=== PATIENT | female | born 1970 | race African-American/Black ===

== ENCOUNTER 2017-11-09 17:30 | Emergency (ER) | payer OTHER ==
[~2017-11-09] VITALS: Ht 157.5 cm; Wt 144.7 kg
[2017-11-09] MEDS ORDERED: LISINOPRIL10 MG ORAL (17:50)
[2017-11-09] MEDS ORDERED: METFORMIN HCL1000 M1 ORAL (17:50)
[2017-11-09] MEDS ORDERED: HYDROCHLOROTH12.5 M2 ORAL (17:50)
[2017-11-09 18:00] VITALS: BP 134/87
--- NOTE | 2017-11-09 18:14 | Emergency Room Report ---
History of Present Illness General Chief Complaint: General Complaint Source: Patient Present Illness HPI 47-year-old female patient presents ER complaining of bilateral leg swelling for the past 3 days. Reports that she has a history of leg swelling. Denies recent travel or immobilization. Reports that she takes HCTZ normally, did not take today because "doesn't treat the symptoms enough". Denies chest pain, shortness breath, other acute symptoms. reports history of hypertension. Denies history of heart attack, stroke, CHF. Denies hx of PE. Reports hx of diabetes. Also complaining of small possible bug bites on feet. Reports they' re pruritic. Denies drainage or open lesions, denies tenderness to palpation. Reports she has use topical Benadryl medications with mild relief of symptoms. Denies other acute symptoms. Denies fever,vomiting, abdominal pain. Allergies: Coded Allergies: No Known Allergies (Unverified , 11/09/17) Patient History Past Medical History: see triage record Reviewed Nursing Documentation: PMH: Agreed; PSxH: Agreed Nursing Documentation-PMH Past Medical History: No History, Except For Hx Cardiac Problems: No - Arthritis Hx Hypertension: Yes Hx Pacemaker: No Hx Asthma: No - Bronchitis Hx COPD: No Hx Diabetes: Yes Hx Cancer: No Hx Gastrointestinal Problems: No Hx Dialysis: No History Of Psychiatric Problem: Yes - Depression Hx Neurological Problems: No Hx Cerebrovascular Accident: No Hx Seizures: No Review of Systems All Other Systems: negative except mentioned in HPI Physical Exam Vital Signs Date Time Temp Pulse Resp B/P (MAP) Pulse Ox O2 Delivery O2 Flow Rate FiO2 11/09/17 17:38 98.1 87 15 134/87 97 Room Air 98.1 Sp02 EP Interpretation: reviewed, normal General Appearance: well appearing, no apparent distress, alert, GCS 15, non- toxic, obese Head: normocephalic, atraumatic Eyes: bilateral eye normal inspection, bilateral eye PERRL ENT: hearing grossly normal, normal pharynx, no angioedema, normal voice, TMs + canals normal, uvula midline, moist mucus membranes Neck: full range of motion Respiratory: lungs clear, normal breath sounds, no rhonchi, no respiratory distress, no accessory muscle use, no wheezing, speaking full sentences Cardiovascular #1: regular rate, rhythm, edema - Bilateral Lower leg edema, no pitting Gastrointestinal: non tender, soft, no mass, non-distended, no guarding, no rebound Musculoskeletal: back normal, digits/nails normal, gait/station normal, normal range of motion, non-tender, no calf tenderness, Aiarm's Sign negative Neurologic: alert, oriented x3, responsive, motor strength/tone normal, sensory intact Skin: no rash Medical Decision Making PA Attestation Dr. Orona is my supervising Physician whom patient management has been discussed with. Diagnostic Impression: Primary Impression: Peripheral edema Additional Impressions: Microscopic hematuria Bug bite ER Course Pt. presents to the ED c/o bilateral leg edema and bug bites. Ddx considered but are not limited to fracture peripheral edema, CHF, [place], DVT. low suspicion for DVT due to Wells criteria. Will order labs to rule out CHF. Vital signs: are WNL, pt. is afebrile, blood pressure mildly elevated. Blood pressure mildly elevated at this time, will continue to monitor. Denies chest pain, shortness of breath, vision changes, does not require acute intervention at ER at this time. Follow with primary care provider discuss further treatment and referral. Advised on low-sodium diet, advised on diet and exercise. ER COURSE: provided patient with Lasix in the ER. Accu-Chek shows blood sugar 189, does not require acute intervention at this time. instructed patient to take diabetes medications as instructed. Follow up with PCP. CBC and CMP unremarkable UA elevated RBCs and blood, patient denies hematuria or abdominal pain. No protein in urine, unlikely due to kidney damage. Patient states that she is beginning her menstrual period soon, may be related to onset of menstrual period. F/u with PCP and deaf/hard of hearing specialist. No abdominal TTP, does not require imaging at this time. CXR negative for acute disease. EKG no ST elevation, no fracture arrhythmia, normal sinus rhythm. Low suspicion for acute CHF exacerbation, no chest pain or SOB noted by patient , lungs clear to auscultation. Mildly erythematous urticaria noted on bilateral dorsum of feet, no active draining, no induration or edema, likely localized reaction due to bug bites. Use hydrocortisone cream for itching and swelling symptoms. Do not apply to face or skin creases. OTC Benadryl for pruritis symptoms, SE drowsiness, do not take prior to drinking, driving, operating heavy machinery. advised patient to to elevate legs and wear compression stockings. Take blood pressure medication as instructed. Do not skip dosages of medications. patient reports symptoms have improved while in the ER. States pain and swelling of legs decreased. Patient able to ambulate independently. Nontoxic appearing, in no acute distress , OK for discharge to home. DISCHARGE: At this time pt is stable for d/c to home. Patient is resting comfortably, in no acute distress, nontoxic appearing, talking without difficulty. Patient to take medications as instructed Will provide with patient care instructions and any necessary prescriptions. Care plan and follow-up instructions provided. Patient instructed to follow-up with primary care provider in 3 - 5 days. Patient questions asked and answered. Patient reports understanding and agreement to treatment plan. ER precautions given. Patient instructed to return to ER immediately for any new or worsening of symptoms including but not limited to increasing SOB, persistent fever, chest pain, intractable vomiting. - Please note that this Emergency Department Report was dictated using [employer] core tester technology software, occasionally this can lead to erroneous entry secondary to interpretation by the dictation equipment. Labs Test 11/09/17 18:40 White Blood Count 6.8 K/UL (4.8-10.8) Red Blood Count 4.26 M/UL (4.20-5.40) Hemoglobin 12.2 G/DL (12.0-16.0) Hematocrit 35.3 % (37.0-47.0) Mean Corpuscular Volume 83 FL (80-99) Mean Corpuscular Hemoglobin 28.8 PG (27.0-31.0) Mean Corpuscular Hemoglobin Concent 34.7 G/DL (32.0-36.0) Red Cell Distribution Width 12.4 % (11.6-14.8) Platelet Count 318 K/UL (150-450) Mean Platelet Volume 7.0 FL (6.5-10.1) Neutrophils (%) (Auto) 52.3 % (45.0-75.0) Lymphocytes (%) (Auto) 37.7 % (20.0-45.0) Monocytes (%) (Auto) 5.3 % (1.0-10.0) Eosinophils (%) (Auto) 3.1 % (0.0-3.0) Basophils (%) (Auto) 1.7 % (0.0-2.0) Urine Color Pale yellow Urine Appearance Clear Urine pH 5 (4.5-8.0) Urine Specific [place] 1.015 (1.005-1.035) Urine Protein Negative (NEGATIVE) Urine Glucose (UA) Negative (NEGATIVE) Urine Ketones Negative (NEGATIVE) Urine Occult Blood 5+ (NEGATIVE) Urine Nitrite Negative (NEGATIVE) Urine Bilirubin Negative (NEGATIVE) Urine Urobilinogen Normal MG/DL (0.0-1.0) Urine Leukocyte Esterase 1+ (NEGATIVE) Urine RBC 20-30 /HPF (0 - 2) Urine WBC 0-2 /HPF (0 - 2) Urine Squamous Epithelial Cells Few /LPF (NONE/OCC) Urine Bacteria Occasional /HPF (NONE) Urine HCG, Qualitative Negative (NEGATIVE) Sodium Level 137 MMOL/L (136-145) Potassium Level 3.8 MMOL/L (3.5-5.1) Chloride Level 101 MMOL/L (98-107) Carbon Dioxide Level 28 MMOL/L (21-32) Anion Gap 8 mmol/L (5-15) Blood Urea Nitrogen 16 mg/dL (7-18) Creatinine 1.0 MG/DL (0.55-1.30) Estimat Glomerular Filtration Rate > 60 mL/min (>60) Glucose Level 192 MG/DL (74-106) Calcium Level 9.2 MG/DL (8.5-10.1) Total Bilirubin 0.4 MG/DL (0.2-1.0) Aspartate Amino Transf (AST/SGOT) 11 U/L (15-37) Alanine Aminotransferase (ALT/SGPT) 22 U/L (12-78) Alkaline Phosphatase 99 U/L (46-116) Total Creatine Kinase 122 U/L (26-308) Creatine Kinase MB 1.0 NG/ML (0.0-3.6) Creatine Kinase MB Relative Index 0.8 Pro-B-Type Natriuretic Peptide 69 pg/mL (0-125) Total Protein 7.5 G/DL (6.4-8.2) Albumin 3.4 G/DL (3.4-5.0) Globulin 4.1 g/dL Albumin/Globulin Ratio 0.8 (1.0-2.7) EKG Diagnostic Results Rate: normal Rhythm: NSR ST Segments: no acute changes ASA given to the pt in ED: Yes JOSEFINA Calix PA-C Rhythm Strip Diag. Results EP Interpretation: yes Rate: 83 Rhythm: NSR, no PVC's, no ectopy PA Scribe Text Neil Calix PA-C Chest X-Ray Diagnostic Results Chest X-Ray Diagnostic Results : Chest X-Ray Ordered: Yes # of Views/Limited/Complete: 1 View Indication: Chest Pain EP Interpretation: Yes PA Xray: Interpretation reviewed, by supervising MD, and agrees with findings. Interpretation: no consolidation, no effusion, no pneumothorax, no acute cardiopulmonary disease Impression: No acute disease PA Scribe Text Neil Calix PA-C Last Vital Signs Date Time Temp Pulse Resp B/P (MAP) Pulse Ox O2 Delivery O2 Flow Rate FiO2 11/09/17 18:00 98.1 76 15 134/87 97 Room Air 98.1 Disposition: HOME, SELF-CARE Condition: Stable Scripts Hydrocortisone/Aloe Vera 1%* (HYDROCORTISONE-ALOE 1% CREAM*) Y Cr 1 APPLIC TOPIC Q6H PRN for Itching, #30 GM Prov: Rj Calix 11/09/17 Patient Instructions: Edema, [id number], Hematuria, Adult, Insect Bite, Easy- to-Read, Peripheral Edema Additional Instructions: Followup with primary care provider in 3 -5 days. Discuss HCTZ medication and need for change in dosage or change in medication. Wear compressions stockings, elevate legs to help with draining. Discuss microscopic hematuria, need for further treatment and referral. Request referral to dermatology. Do not scratch or itch. Take Benadryl for itching symptoms, may cause drowsiness, do not take prior to drinking driving or operating machinery. Take medications as directed. Apply small amount of cream to affected area, do not apply to face or skin creases. Patient questions asked and answered. ER precautions given, patient instructed to return to ER immediately for any new or worsening of symptoms. Rj Calix Nov 09, 2017 18:13
--- NOTE | 2017-11-09 18:51 | Diagnostic Imaging Report ---
EXAM: XR Chest, 1 View CLINICAL HISTORY: SWELL TECHNIQUE: Frontal view of the chest. COMPARISON: No relevant prior studies available. FINDINGS: Lungs: Unremarkable. No consolidation. Pleural space: Unremarkable. No pneumothorax. Heart: Unremarkable. No cardiomegaly. Mediastinum: Unremarkable. Bones/joints: Thoracic dextrocurvature. IMPRESSION: No evidence of acute pulmonary disease.
[2017-11-09 19:01] LABS: APPEARANCE,URINE CLEAR; BASOPHILS % (AUTO) 1.7 % (0.0-2.0); BILIRUBIN, URINE NEGATIVE (NEGATIVE); COLOR,URINE PALE YELLOW; EOSINOPHILS % (AUTO) 3.1 % (0.0-3.0); GLUCOSE, URINE (UA) NEGATIVE (NEGATIVE); HEMATOCRIT 35.3 % (37.0-47.0); HEMOGLOBIN 12.2 G/DL (12.0-16.0); KETONES,URINE NEGATIVE (NEGATIVE); LEUKOCYTE ESTERASE ,URINE 1+ (NEGATIVE); LYMPHOCYTES % (AUTO) 37.7 % (20.0-45.0); MEAN CORPUSCULAR VOLUME 83 FL (80-99); MONOCYTES % (AUTO) 5.3 % (1.0-10.0); NEUTROPHILS % (AUTO) 52.3 % (45.0-75.0); NITRITE,URINE NEGATIVE (NEGATIVE); PH,URINE 5 (4.5-8.0); PLATELET COUNT 318 K/UL (150-450); PROTEIN,URINE NEGATIVE (NEGATIVE); RED BLOOD COUNT 4.26 M/UL (4.20-5.40); RED CELL DISTRIBUTION WIDTH 12.4 % (11.6-14.8); UROBILINOGEN,URINE NORMAL MG/DL (0.0-1.0); WHITE BLOOD COUNT 6.8 K/UL (4.8-10.8)
[2017-11-09 19:08] LABS: ANION GAP 8 mmol/L (5-15); BLOOD UREA NITROGEN 16 mg/dL (7-18); CALCIUM 9.2 MG/DL (8.5-10.1); CARBON DIOXIDE 28 MMOL/L (21-32); CHLORIDE 101 MMOL/L (98-107); POTASSIUM 3.8 MMOL/L (3.5-5.1); SODIUM 137 MMOL/L (136-145)
[2017-11-09 19:20] LABS: ALANINE AMINOTRANSFERASE 22 U/L (12-78); ALBUMIN 3.4 G/DL (3.4-5.0); ALBUMIN/GLOBULIN RATIO 0.8 (1.0-2.7); ALKALINE PHOSPHATASE 99 U/L (46-116); ASPARTATE AMINO TRANSFERASE 11 U/L (15-37); BILIRUBIN,TOTAL 0.4 MG/DL (0.2-1.0); CREATINE KINASE 122 U/L (26-308)
[2017-11-09] MEDS ORDERED: Ketorolac 30mg Inj IM ONE (19:45)
[2017-11-09] MEDS ORDERED: HYDROCORTISONE-30 GM TOPIC (20:33)
[2017-11-09 20:47] VITALS: BP 161/102
--- NOTE | 2017-11-11 14:22 | Cardiology Report ---
APPROVED REPORT EKG Measurement Heart [id number] Normal sinus rhythm Normal ECG
== END 2017-11-09 20:47 | disposition home or self-care (01) ==
LOC: EMR 18:45
DX: R60.9 Edema, unspecified (principal); I10 Essential (primary) hypertension; F32.9 Major depressive disorder, single episode, unspecified; R31.29 Other microscopic hematuria; T14.8XXA Other injury of unspecified body region, initial encounter; W57.XXXA Bitten or stung by nonvenomous insect and other nonvenomous arthropods, initial encounter; Y93.9 Activity, unspecified; Y92.9 Unspecified place or not applicable
CPT/HCPCS: 36415; 71045; 80053; 81003; 81025; 82550; 82553; 83880; 85025; 93005; 96372; 96374; 99284; J1885

== ENCOUNTER 2018-10-23 18:57 | Emergency (ER) | payer OTHER ==
[~2018-10-23] VITALS: Ht 157.5 cm; Wt 140.6 kg
[~2018-10-23 18:57] MED LIST: HYDROCHLOROTH12.5 M2 ORAL; HYDROCORTISONE-30 GM TOPIC; LISINOPRIL10 MG ORAL; METFORMIN HCL1000 M1 ORAL
--- NOTE | 2018-10-23 19:05 | NUR ---
ED Nurse Note: pt ambulatory; slipped in the store, landed on LT sided of body around 1700. patient rates her pain a 8/10 able to ambulate. patient is alert and oriented x4, ambulatory with a steady gait, VSS
[2018-10-23 19:10] VITALS: BP 119/78
[2018-10-23] MEDS ORDERED: Naproxen 500mg tab ORAL ONE (19:30)
[2018-10-23 19:48] LABS: APPEARANCE,URINE CLEAR; BILIRUBIN, URINE NEGATIVE (NEGATIVE); COLOR,URINE PALE YELLOW; GLUCOSE, URINE (UA) 1+ (NEGATIVE); KETONES,URINE NEGATIVE (NEGATIVE); LEUKOCYTE ESTERASE ,URINE 2+ (NEGATIVE); NITRITE,URINE NEGATIVE (NEGATIVE); PH,URINE 5 (4.5-8.0); PROTEIN,URINE NEGATIVE (NEGATIVE); UROBILINOGEN,URINE NORMAL MG/DL (0.0-1.0)
[2018-10-23 20:15] VITALS: BP 122/72
--- NOTE | 2018-10-23 20:15 | NUR ---
ER DISCHARGE NOTE: Patient is cleared to be discharged per ERMD, pt is aox4, on room air, with stable vital signs. pt was given dc and prescription instructions, pt was able to verbalize understanding, pt id band removed without complications. pt is able to ambulate with steady gait. pt took all belongings.
--- NOTE | 2018-10-23 20:49 | Emergency Room Report ---
History of Present Illness General Chief Complaint: Multiple Trauma/Fall Source: Patient Present Illness HPI 48-year-old female with no significant past medical history of hypertension currently controlled and diabetes currently controlled here complaining of pain left flank as well as left thigh and left elbow and left hand after almost slipping in [employer] store and being hit by the counter. Patient is rating her pain 5 out of 10 without radiation denying tingling and numbness. Patient denies falling to the ground. Denies of spilling of any hot liquids on herself. Denies any head injury, loss of consciousness, blurry vision, dizziness, chest pain, shortness of breath, palpitation, abdominal pain, nausea vomiting. Patient has not taken medication for her symptoms. I explained to the patient that due to the mechanism of injury there is no ultrasound of the abdomen needed however patient is morbidly obese and low risk of fracture or blunt trauma due to the mechanism of injury as she did not directly fall to the ground and no signs of ecchymosis noted. Patient is being rude to the staff complaining of being was treated as she did not get a pillow or a blanket in a timely manner. Security had to come and called patient down and take her back to her room. Allergies: Coded Allergies: No Known Allergies (Unverified , 11/09/17) Patient History Past Medical History: see triage record Past Surgical History: unable to obtain Pertinent Family History: none Last Menstrual Period: 09/26 Now: No Immunizations: UTD Reviewed Nursing Documentation: PMH: Agreed; PSxH: Agreed Nursing Documentation-PMH Hx Cardiac Problems: No - Arthritis Hx Hypertension: Yes Hx Pacemaker: No Hx Asthma: No - Bronchitis Hx COPD: No Hx Diabetes: Yes Hx Cancer: No Hx Gastrointestinal Problems: No Hx Dialysis: No Hx Neurological Problems: No Hx Cerebrovascular Accident: No Hx Seizures: No Review of Systems All Other Systems: negative except mentioned in HPI Physical Exam Vital Signs Date Time Temp Pulse Resp B/P (MAP) Pulse Ox O2 Delivery O2 Flow Rate FiO2 10/23/18 19:04 98.6 91 18 104/78 (87) 98 Room Air Sp02 EP Interpretation: reviewed, normal General Appearance: well appearing, no apparent distress, alert, GCS 15, obese Head: normocephalic, atraumatic Eyes: bilateral eye normal inspection, bilateral eye PERRL ENT: normal ENT inspection, hearing grossly normal, normal pharynx, no angioedema, TMs + canals normal Neck: normal inspection, full range of motion, supple Respiratory: normal inspection, chest non-tender, lungs clear, normal breath sounds, no rhonchi, no wheezing Cardiovascular #1: normal inspection, normal peripheral pulses, regular rate, rhythm, no edema, no murmur, normal capillary refill Gastrointestinal: normal inspection, normal bowel sounds, non tender, soft, no mass, no organomegaly, no peritonitis, no bruit, non-distended, other - No ecchymosis noted Rectal: deferred Genitourinary: no CVA tenderness Musculoskeletal: normal inspection, back normal, digits/nails normal, gait/ station normal, normal range of motion, non-tender Neurologic: normal inspection, alert, oriented x3, responsive, line service person III-XII nml as tested Psychiatric: normal inspection, judgement/insight normal Skin: no rash, other - No ecchymosis Lymphatic: normal inspection, no adenopathy Medical Decision Making PA Attestation Diagnosis and treatment plans were reviewed and discussed with my supervising physician Dr. Maldonado Diagnostic Impression: Primary Impression: Hand contusion Additional Impression: Contusion of leg, left ER Course 48-year-old female with no significant past medical history of hypertension currently controlled and diabetes currently controlled here complaining of pain left flank as well as left thigh and left elbow and left hand after almost slipping in [employer] store and being hit by the counter. Patient is rating her pain 5 out of 10 without radiation denying tingling and numbness. Patient denies falling to the ground. Denies of spilling of any hot liquids on herself. Denies any head injury, loss of consciousness, blurry vision, dizziness, chest pain, shortness of breath, palpitation, abdominal pain, nausea vomiting. Patient has not taken medication for her symptoms. I explained to the patient that due to the mechanism of injury there is no ultrasound of the abdomen needed however patient is morbidly obese and low risk of fracture or blunt trauma due to the mechanism of injury as she did not directly fall to the ground and no signs of ecchymosis noted. Patient is being rude to the staff complaining of being was treated as she did not get a pillow or a blanket in a timely manner. Security had to come and called patient down and take her back to her room. Ddx considered but are not limited to : hand sprain versus fracture versus contusion strain, femur fracture, contusion, sprain, strain Vital signs: are WNL, pt. is afebrile H&PE are most consistent with: Contusion of left hand, left elbow, left femur, left flank ORDERS: Hand x-ray, elbow x-ray, femur x-ray ED INTERVENTIONS: Naproxen DISCHARGE: At this time pt. is stable for d/c to home. Will provide printed patient care instructions, and any necessary prescriptions. Care plan and follow up instructions have been discussed with the patient prior to discharge. Follow-up with your primary care provider avoid strenuous physical activity alternate between icing and heating the affected area at this time no further imaging needed and to follow-up with a primary care physician Other X-Ray Diagnostic Results Other X-Ray Diagnostic Results #1: X-Ray ordered: left hand # of Views/Limited Vs Complete: 3 View Indication: Pain EP Interpretation: Yes PA Xray: Interpretation reviewed, by supervising MD, and agrees with findings. Interpretation: no dislocation, no soft tissue swelling, no fractures Impression: No acute disease Electronically Signed by: Loly Dunne PA-C Other X-Ray Diagnostic Results #2: X-Ray ordered: Elbow # of Views/Limited Vs Complete: 3 View Indication: Pain EP Interpretation: Yes PA Xray: Interpretation reviewed, by supervising MD, and agrees with findings. Interpretation: no dislocation, no soft tissue swelling, no fractures Impression: No acute disease Electronically Signed by: Loly Dunne PA-C Other X-Ray Diagnostic Results #3: X-Ray ordered: Femur # of Views/Limited Vs Complete: 2 View Indication: Pain EP Interpretation: Yes PA Xray: Interpretation reviewed, by supervising MD, and agrees with findings. Interpretation: no dislocation, no soft tissue swelling, no fractures Impression: No acute disease Electronically Signed by: Loly Dunne PA-C Last Vital Signs Date Time Temp Pulse Resp B/P (MAP) Pulse Ox O2 Delivery O2 Flow Rate FiO2 10/23/18 19:10 91 18 Room Air 10/23/18 19:10 98.6 119/78 98 Disposition: HOME, SELF-CARE Condition: Stable Scripts Methocarbamol* (ROBAXIN*) 500 Mg Tablet 500 MG PO TID, #21 TAB 0 Refills Prov: Sahelimoghavami,Nahal PA 10/23/18 Naproxen* (NAPROXEN*) 500 Mg Tablet 500 MG ORAL TWICE A DAY, #30 TAB Prov: Loly Covington 10/23/18 Patient Instructions: Contusion, [id number] Additional Instructions: Take medication as directed alternate between icing and heating the affected area follow-up with a primary care provider physical therapy advised Loly Covington Oct 23, 2018 20:49
[2018-10-23] MEDS ORDERED: NAPROXEN500 M2 ORAL (20:57)
[2018-10-23] MEDS ORDERED: ROBAXIN500 MG PO (20:57)
--- NOTE | 2018-10-24 12:38 | Diagnostic Imaging Report ---
Indication: Left thigh pain Comparison: None Findings: 2 views of the left femur were obtained. No acute fractures, malalignment, erosions or periostitis are identified. Bones are osteopenic. There is mild arthrosis at the hip and knee characterized by joint space narrowing. Soft tissues are unremarkable. Impression: Negative examination for injury
--- NOTE | 2018-10-24 13:01 | Diagnostic Imaging Report ---
Indication: Left elbow pain Findings: 3 views of the left elbow were obtained. No acute fractures, malalignment, erosions or periostitis are identified. There is moderate osteophyte formation involving the elbow. Soft tissues are unremarkable. Impression: No acute injury. Moderate arthrosis
--- NOTE | 2018-10-24 13:02 | Diagnostic Imaging Report ---
Indication: left hand pain. Comparison: None Findings: 3 views of the left hand were obtained. Normal alignment is demonstrated. No acute fractures, erosions, or periosteal reaction are seen. Soft tissues are unremarkable. Impression: No acute findings.
== END 2018-10-23 20:15 | disposition home or self-care (01) ==
LOC: EMR 19:25
DX: S60.222A Contusion of left hand, initial encounter (principal); S80.12XA Contusion of left lower leg, initial encounter; W22.8XXA Striking against or struck by other objects, initial encounter; Y92.9 Unspecified place or not applicable; I10 Essential (primary) hypertension; E11.9 Type 2 diabetes mellitus without complications; E66.01 Morbid (severe) obesity due to excess calories; M25.522 Pain in left elbow; M79.652 Pain in left thigh; Z68.43 Body mass index [BMI] 50.0-59.9, adult
CPT/HCPCS: 81001; 81025; 87086; 99284